=== PATIENT | female | born 1975 | race Caucasian/White ===

== ENCOUNTER 2017-10-07 06:28 | Emergency (ER) | payer OTHER ==
[~2017-10-07] VITALS: Ht 162.6 cm; Wt 87.1 kg
[2017-10-07 06:31] VITALS: Ht 162.6 cm; Wt 87.1 kg
[2017-10-07 07:09] VITALS: BP 133/71
== END 2017-10-07 07:09 | disposition home or self-care (01) ==
LOC: ED 06:28
DX: S51.811A Laceration without foreign body of right forearm, initial encounter (principal); W25.XXXA Contact with sharp glass, initial encounter; Y93.89 Activity, other specified; Y99.8 Other external cause status; Y92.89 Other specified places as the place of occurrence of the external cause
CPT/HCPCS: 90715

== ENCOUNTER 2017-10-14 06:19 | Emergency (ER) | payer OTHER ==
[~2017-10-14] VITALS: Ht 162.6 cm; Wt 77.1 kg
[2017-10-14 06:21] VITALS: Ht 162.6 cm; Wt 77.1 kg
[2017-10-14 06:27] VITALS: BP 116/85
== END 2017-10-14 06:27 | disposition home or self-care (01) ==
LOC: ED 06:19
DX: S51.811D Laceration without foreign body of right forearm, subsequent encounter (principal); X58.XXXD Exposure to other specified factors, subsequent encounter